=== PATIENT | male | born 1995 | race American Indian/Alaskan Native ===

== ENCOUNTER 2019-05-04 08:48 | Emergency (ER) | payer SELFPAY ==
[2019-05-04 08:53] VITALS: BP 177/105
[2019-05-04] MEDS ORDERED: ONDANSETRON 4 MG/2 ML INJ IV ONE (09:36)
--- NOTE | 2019-05-04 09:38 | Emergency Department Report ---
Vomiting/Diarrhea - [facility] Chief Complaint: Nausea/Vomiting/Diarrhea Stated Complaint: VOMITTING Time Seen by Provider: 05/04/19 09:35 Duration: 1 Day Severity: moderate Nausea/Vomiting Severity: Moderate Diarrhea Severity: None Pain Location: Other (none) Pain Severity: None Symptoms: No Watery Diarrhea, No Bloody diarrhea, No Fever, No Able to Tolerate Fluids, No Recent Unusual Foods, No Recent Untreated Water, No Recent use of Antibiotics, No Family w/ Similar Symptoms, No Contacts w/ Similar Symptoms, No Rash, No Hematuria, No Recent URI Symptoms Other History: vomiting all night. drank too much yesterday. no abd pain ED Review of Systems ROS: Stated complaint: VOMITTING Other details as noted in HPI Comment: All other systems reviewed and negative Gastrointestinal: as per HPI ED Past Medical Hx - Past Medical History Previous Medical History?: No - Surgical History Past Surgical History?: No - Social History Smoking Status: Current Every Day Smoker Substance Use Type: Marijuana - Medications Home Medications: Home Medications Medication Instructions Recorded Confirmed Last Taken Type Promethazine [Phenergan] 25 mg PO Q6HR PRN #12 tab 05/04/19 Unknown Rx Vomiting Diarrhea Exam - Exam General: Vital signs noted. No distress. Alert and acting appropriately. HEENT: Yes Moist Mucous Membranes, No Pharyngeal Erythema, No Pharyngeal Exudates, No Rhinorrhea, No Conjuctival Injection, No Frontal Tenderness, No Maxillary Tenderness Neck: No Adenopathy, No Rigidity Lungs: Yes Clear Lung Sounds, Yes Good Air Exchange, No Wheezes, No Stridor, No Cough, No Nasal Flaring, No Retractions, No Use of Accessory Muscles Heart exam: Regular: Yes, Murmur: No, Tachycardia: No Abdomen: Tenderness: No, Peritoneal Signs: No, Distention: No, Hyperactive Bowel sounds: No Skin exam: Rash: No, Edema: No, Normal turgor: Yes Neurologic: Alert and oriented, no deficits. Musculoskeletal: Unremarkable. ED Course Vital Signs 05/04/19 08:52 Temperature 97.3 F L Pulse Rate 90 Respiratory 18 Rate Blood Pressure 177/105 [Right] O2 Sat by Pulse 100 Oximetry ED Medical Decision Making - Lab Data Result diagrams: 05/04/19 10:03 05/04/19 10:03 - Medical Decision Making vomiting after drinking too much last night nontender abdomen c/w gastritis/hangover will hydrate, give zofran, reassess better with meds, ready to go monitor BP (hx HTN, asymptomatic) fu pcp, avoid etoh - Differential Diagnosis hangover, dehydration, gastritis Critical care attestation.: If time is entered above; I have spent that time in minutes in the direct care of this critically ill patient, excluding procedure time. ED Disposition Clinical Impression: Hangover without complication Disposition: TO HOME OR SELFCARE Is pt being admited?: No Condition: Good Instructions: Acute Nausea and Vomiting (ED) Prescriptions: Promethazine [Phenergan] 25 mg PO Q6HR PRN #12 tab PRN Reason: Nausea Referrals: PRIMARY CARE, [Primary Care Provider] - 3-5 Days CARLITO TRINIDAD MD [Referring] - 3-5 Days Time of Disposition: 11:15
[2019-05-04] MEDS ORDERED: D5W/0.9% NACL 1,000 ML IV SCH (10:00)
[2019-05-04 10:24] LABS: Basophils % (Auto) 0.5 % (0.0-1.8); Eosinophils % (Auto) 0.1 % (0.0-4.3); Hematocrit 41.7 % (35.5-45.6); Hemoglobin 13.7 gm/dl (11.8-15.2); Lymphocytes # (Auto) 0.4 K/mm3 (1.2-5.4); Lymphocytes % (Auto) 12.6 % (13.4-35.0); Mean Corpuscular HGB Conc 33 % (32-34); Mean Corpuscular Volume 81 fl (84-94); Monocytes # (Auto) 0.2 K/mm3 (0.0-0.8); Monocytes % (Auto) 6.8 % (0.0-7.3); Platelet Count 127 K/mm3 (140-440); Red Blood Count 5.14 M/mm3 (3.65-5.03); Red Cell Distribution Width 16.1 % (13.2-15.2)
[2019-05-04 10:59] LABS: Alanine Aminotransferase 16 units/L (7-56); Albumin 4.7 g/dL (3.9-5); BUN/Creatinine Ratio 13; Blood Urea Nitrogen 12 mg/dL (9-20); Hemolysis Index 8
== END 2019-05-04 12:05 | disposition home or self-care (01) ==
LOC: ED 08:48
DX: R11.10 Vomiting, unspecified (principal); F17.200 Nicotine dependence, unspecified, uncomplicated; F12.10 Cannabis abuse, uncomplicated; Z79.899 Other long term (current) drug therapy
CPT/HCPCS: 36415; 80053; 83690; 85025; 96361; 96374; 99283; J2405; J7042

== ENCOUNTER 2019-07-17 08:02 | Inpatient (IN) | payer SELFPAY ==
[2019-07-17] MEDS ORDERED: ONDANSETRON 4 MG/2 ML INJ IV ONE (08:51)
--- NOTE | 2019-07-17 08:52 | Emergency Department Report ---
ED Shortness of Breath HPI - General Chief Complaint: Dyspnea/Respdistress Stated Complaint: SOB Time Seen by Provider: 07/17/19 08:26 Source: patient, EMS Mode of arrival: Ambulatory Limitations: No Limitations - History of Present Illness Initial Comments: 23-year-old male with no past medical history presents to ED with shortness of breath x3-4 days. Patient lives with his uncle who tested positive for COVID- 19. Patient reports subjective fever, slight cough, and body aches. Patient denies sore throat, loss of sense of smell, or diarrhea. Patient reports nausea and vomiting since yesterday. MD Complaint: shortness of breath -: days(s) (4) Severity: mild Consistency: intermittent Improves With: rest Worsens With: exertion Associated Symptoms: fever, cough, nausea/vomiting Treatments Prior to Arrival: none - Related Data Home Oxygen Therapy: No Home Medications Medication Instructions Recorded Confirmed Last Taken No Known Home Medications [No 07/17/19 07/17/19 Unknown Reported Home Medications] Allergies Allergy/AdvReac Type Severity Reaction Status Date / Time No Known Allergies Allergy Unverified 05/04/19 08:53 ED Review of Systems ROS: Stated complaint: SOB Other details as noted in HPI Comment: All other systems reviewed and negative Constitutional: fever ENT: denies: throat pain Respiratory: cough, shortness of breath Gastrointestinal: nausea, vomiting. denies: diarrhea ED Past Medical Hx - Past Medical History Previous Medical History?: No - Surgical History Past Surgical History?: No - Social History Smoking Status: Current Every Day Smoker Substance Use Type: Alcohol - Medications Home Medications: Home Medications Medication Instructions Recorded Confirmed Last Taken Type No Known Home Medications [No 07/17/19 07/17/19 Unknown History Reported Home Medications] ED Physical Exam - General Limitations: No Limitations General appearance: alert, in no apparent distress - Head Head exam: Present: atraumatic, normocephalic - Eye Eye exam: Present: normal appearance - ENT ENT exam: Present: mucous membranes moist - Neck Neck exam: Present: normal inspection - Respiratory Respiratory exam: Present: normal lung sounds bilaterally. Absent: respiratory distress - Cardiovascular Cardiovascular Exam: Present: regular rate, normal rhythm - GI/Abdominal GI/Abdominal exam: Present: soft. Absent: distended, tenderness - Extremities Exam Extremities exam: Present: normal inspection - Neurological Exam Neurological exam: Present: alert, oriented X3 - Psychiatric Psychiatric exam: Present: normal affect, normal mood - Skin Skin exam: Present: warm, dry, intact, normal color ED Course Vital Signs 07/17/19 07/17/19 07/17/19 09:28 09:31 09:35 Temperature 98.4 F Pulse Rate 83 Respiratory 21 Rate Blood Pressure 157/100 [Left] O2 Sat by Pulse 100 98 96 Oximetry 07/17/19 07/17/19 09:45 10:00 Temperature Pulse Rate 85 Respiratory 14 Rate Blood Pressure 156/116 [Left] O2 Sat by Pulse 85 100 Oximetry - Reevaluation(s) Reevaluation #1: 07/17/19 09:40 RN ambulated pt for approx 1-2 min, pt had subsequent desaturation into the 80s% on room air. Pt also became tachypneic ED Medical Decision Making - Lab Data Result diagrams: 07/17/19 09:31 07/17/19 09:31 - Radiology Data Radiology results: report reviewed, image reviewed - Medical Decision Making 23-year-old male presents to ED with 3-day history of subjective fevers, shortness of breath, body aches, mild cough. Patient lives with his uncle who tested positive for COVID-19. Patient reports uncle was hospitalized at the [place]. states he has been in close contact with his uncle since he was discharged home. At rest, patient has normal vitals, however with minimal ambulation around the exam room patient's oxygen desaturates, as low as 85% on room air, patient also becomes tachypneic and dizzy. Patient was placed on 2 L O2. Chest x-ray is normal. He does have some lymphopenia present. COVID-19 testing was ordered, results pending. Patient will be admitted to the hospitalist due to his hypoxia for further management. - Differential Diagnosis COVID 19, pneumonia Critical care attestation.: If time is entered above; I have spent that time in minutes in the direct care of this critically ill patient, excluding procedure time. ED Disposition Clinical Impression: Suspected 2019 novel coronavirus infection, Hypoxia Disposition: OP ADMIT IP TO THIS HOSP Is pt being admited?: Yes Condition: Stable Referrals: JOSE RAMON SORTO MD [Primary Care Provider] - 3-5 Days Time of Disposition: 10:44
--- NOTE | 2019-07-17 09:19 | XRay Report ---
CHEST 1 VIEW INDICATION / CLINICAL INFORMATION: SOB, +COVID exposure. COMPARISON: None available. FINDINGS: SUPPORT DEVICES: None. HEART / MEDIASTINUM: No significant abnormality. LUNGS / PLEURA: No significant pulmonary or pleural abnormality. No pneumothorax. ADDITIONAL FINDINGS: Thoracolumbar scoliosis IMPRESSION: Thoracolumbar scoliosis. No acute pulmonary or pleural abnormality. Signer Name: Martin Hunter MD FACR Signed: 07/17/2019 9:15 AM Workstation Name: [id number]
[2019-07-17 10:13] LABS: Basophils % (Auto) 0.5 % (0.0-1.8); Eosinophils % (Auto) 0.3 % (0.0-4.3); Hematocrit 51.7 % (35.5-45.6); Hemoglobin 17.7 gm/dl (11.8-15.2); Lymphocytes # (Auto) 1.1 K/mm3 (1.2-5.4); Mean Corpuscular HGB Conc 34 % (32-34); Mean Corpuscular Volume 80 fl (84-94); Monocytes # (Auto) 0.6 K/mm3 (0.0-0.8); Monocytes % (Auto) 11.7 % (0.0-7.3); Platelet Count 146 K/mm3 (140-440); Red Blood Count 6.49 M/mm3 (3.65-5.03); Red Cell Distribution Width 15.6 % (13.2-15.2)
[2019-07-17 10:26] LABS: Alanine Aminotransferase 41 units/L (7-56); Albumin 5.5 g/dL (3.9-5); BUN/Creatinine Ratio 24; Blood Urea Nitrogen 36 mg/dL (9-20); Calcium 11.1 mg/dL (8.4-10.2); Hemolysis Index 12
[2019-07-17 10:27] LABS: C-Reactive Protein 0.2 mg/dL (0.00-1.30)
[2019-07-17 10:29] LABS: Bilirubin,Direct < 0.2 mg/dL (0-0.2)
--- NOTE | 2019-07-17 14:13 | History and Physical Report ---
History of Present Illness Date of examination: 07/17/19 Date of admission: 07/17/19 10:45 Chief complaint: SOB History of present illness: Patient is a 23 yo man with a history of tobacco dependency and diet controlled hypertension who presents to [facility] ED with SOB, subjective fevers and non- productive cough that started 3 days ago. He lives and had contact with his Uncle who has been admitted to the [place] hospital with COVID-19 infection. Associated with the SOB is nausea and 1 episode of nonbloody vomiting without abd pains/constipation. He does have loose stools. He has consented for COVID-19 testing/HIV testing. He does have fatigue. He denies cp, syncope or severe headache or neck stiffness. PMH: as hpi PSH: He denies SH: 1/3 ppd tob, occasional ETOH, +marijuana FH: hypetension, DM ROS: Constitutional: denies: fever +fatigue ENT: denies: throat or neck pain Respiratory: +cough, shortness of breath Cardiovascular: denies: chest pain Endocrine: denies unexplained weight loss or gain Gastrointestinal: denies: abdominal pain, +nausea Genitourinary: denies: dysuria Rectal: denies no incontinence, no bleeding, no itching, no discharge Musculoskeletal: denies swelling, myaglia, + generalized muscle weakness Skin: denies: rash Neurological: denies: headache Hematological/Lymphatic: denies: easy bleeding or easy bruising Allergic/Immunologic: no urticaria, no allergic rhinitis, no anaphylaxis Psych: denies sadness or hopelessness, SI/HI Medications and Allergies Allergies Allergy/AdvReac Type Severity Reaction Status Date / Time No Known Allergies Allergy Unverified 05/04/19 08:53 Home Medications Medication Instructions Recorded Confirmed Last Taken Type No Known Home Medications [No 07/17/19 07/17/19 Unknown History Reported Home Medications] Exam - Physical Exam Narrative exam: Gen: thin cachetic, NAD, Awake, Alert, Orientated x 3 HEENT: has a hair net on, NCAT, EOMI, PERRL, OP Clear Neck: supple, no adenopathy, no thyromegaly, no JVD CVS/Heart: RRR, normal S1S2, pulses present bilaterally Chest/Lungs: CTA B, Symmetrical chest expansion, good air entry bilaterally GI/Abdomen: soft, NTND, good bowel sounds, no guarding or rebound /Bladder: no suprapubic tenderness, no CVA or paraspinal tenderness Extermity/Skin: no c/c/e, no obvious rash MSK: FROM x 4 Neuro: CN 2-12 grossly intact, no new focal deficits Psych: calm - Constitutional Vitals: Temp Pulse Resp BP Pulse Ox 98.4 F 88 13 165/112 100 07/17/19 09:35 07/17/19 11:31 07/17/19 11:31 07/17/19 11:31 07/17/19 11:31 Results - Labs CBC & Chem 7: 07/17/19 09:31 07/17/19 09:31 Labs: Laboratory Last Values WBC 5.2 K/mm3 (4.5-11.0) 07/17/19 09:31 RBC 6.49 M/mm3 (3.65-5.03) H 07/17/19 09:31 Hgb 17.7 gm/dl (11.8-15.2) H 07/17/19 09:31 Hct 51.7 % (35.5-45.6) H 07/17/19 09:31 MCV 80 fl (84-94) L 07/17/19 09:31 MCH 27 pg (28-32) L 07/17/19 09:31 MCHC 34 % (32-34) 07/17/19 09:31 RDW 15.6 % (13.2-15.2) H 07/17/19 09:31 Plt Count 146 K/mm3 (140-440) 07/17/19 09:31 Lymph % (Auto) 21.0 % (13.4-35.0) 07/17/19 09:31 [place] % (Auto) 11.7 % (0.0-7.3) H 07/17/19 09:31 Eos % (Auto) 0.3 % (0.0-4.3) 07/17/19 09:31 Baso % (Auto) 0.5 % (0.0-1.8) 07/17/19 09:31 Lymph # 1.1 K/mm3 (1.2-5.4) L 07/17/19 09:31 [place] # 0.6 K/mm3 (0.0-0.8) 07/17/19 09:31 Eos # 0.0 K/mm3 (0.0-0.4) 07/17/19 09:31 Baso # 0.0 K/mm3 (0.0-0.1) 07/17/19 09:31 Seg Neutrophils % 66.5 % (40.0-70.0) 07/17/19 09:31 Seg Neutrophils # 3.5 K/mm3 (1.8-7.7) 07/17/19 09:31 D-Dimer 176.09 ng/mlDDU (0-234) 07/17/19 09:31 Sodium 136 mmol/L (137-145) L 07/17/19 09:31 Potassium 4.6 mmol/L (3.6-5.0) 07/17/19 09:31 Chloride 97.1 mmol/L (98-107) L 07/17/19 09:31 Carbon Dioxide 20 mmol/L (22-30) L 07/17/19 09:31 Anion Gap 24 mmol/L 07/17/19 09:31 BUN 36 mg/dL (9-20) H 07/17/19 09:31 Creatinine 1.5 mg/dL (0.8-1.5) 07/17/19 09:31 Estimated GFR > 60 ml/min 07/17/19 09:31 BUN/Creatinine Ratio 24 % 07/17/19 09:31 Glucose 86 mg/dL (75-100) 07/17/19 09:31 Glucose 87 mg/dL (75-100) 07/17/19 09:31 Calcium 11.1 mg/dL (8.4-10.2) H 07/17/19 09:31 Ferritin 161.3 ng/mL (13.0-400.0) 07/17/19 09:31 Total Bilirubin 0.70 mg/dL (0.1-1.2) 07/17/19 09:31 Direct Bilirubin < 0.2 mg/dL (0-0.2) 07/17/19 09:31 Indirect Bilirubin 0.5 mg/dL 07/17/19 09:31 AST 49 units/L (5-40) H 07/17/19 09:31 ALT 41 units/L (7-56) 07/17/19 09:31 Alkaline Phosphatase 68 units/L (35-129) 04/24/20 09:31 Lactate Dehydrogenase 234 units/L (91-180) H 07/17/19 09:31 C-Reactive Protein 0.20 mg/dL (0.00-1.30) 07/17/19 09:31 Total Protein 10.5 g/dL (6.3-8.2) H 07/17/19 09:31 Albumin 5.5 g/dL (3.9-5) H 07/17/19 09:31 Albumin/Globulin Ratio 1.1 % 07/17/19 09:31 Procalcitonin < 0.05 ng/mL (<0.15) 07/17/19 09:31 Influenza A (Rapid) Negative (Negative) 07/17/19 09:25 Influenza B (Rapid) Negative (Negative) 07/17/19 09:25 [place]/IV: Voiding Method Toilet IV Catheter Type [Left Forearm INT / Saline Lock ] Assessment and Plan Assessment and plan: Patient is a 23 yo man with a history of tobacco dependency and diet controlled hypertension who presents to [facility] ED with SOB, subjective fevers and non- productive cough that started 3 days ago. He lives and had contact with his [facility] le who has been admitted to the [place] hospital with COVID-19 infection. Associated with the SOB is nausea and 1 episode of nonbloody vomiting without abd pains/constipation. He does have loose stools. He has consented for COVID-19 testing/HIV testing. 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
[2019-07-17] MEDS ORDERED: HYDROcodone/ACETAMINOPHEN 5-325 MG TAB PO PRN (14:19)
[2019-07-17] MEDS ORDERED: hydrALAZINE 20 MG/1 ML INJ IV PRN (14:19)
[2019-07-17] MEDS ORDERED: ACETAMINOPHEN 325 MG TAB PO PRN (14:19)
[2019-07-17] MEDS ORDERED: ONDANSETRON 4 MG/2 ML INJ IV PRN (14:19)
[2019-07-17] MEDS ORDERED: SODIUM CHLORIDE 0.45% 1000 ML 1,000 ML IV SCH (15:00)
--- NOTE | 2019-07-17 15:06 | Consultation ---
History of Present Illness - Reason for Consult Consult date: 07/17/19 COVID PUI Requesting physician: JAZMIN CATALAN - History of Present Illness The patient is a with no significant past medical history came into the hospital with complaints of shortness of breath. He also started a cough 3 days ago. He lives with his uncle who apparently tested positive for COVID-19. Infectious diseases was consulted for additional evaluation. He felt hot but denies any specific fevers. No fever here. Not requiring any oxygen. He admits to bisexual behavior. Consented for HIV test. He was also noted to be significantly hypertensive Review of Systems: General: no fevers,chills or rigors HEENT: no new visual disturbance Respiratory: + For cough, shortness of breath Cardiovascular: No chest pain, syncope Gastrointestinal: No nausea, vomiting or diarrhea Genitourinary: No dysuria or hematuria Musculoskeletal: No new or worsening neck pain or back pain Neurologic: No headaches, seizures Hematologic: No easy bruising or bleeding Endocrine: No night sweats or acute weight loss Skin: negative for rash, jaundice Psychiatric: No suicidal or homicidal ideation Medications and Allergies Allergies Allergy/AdvReac Type Severity Reaction Status Date / Time No Known Allergies Allergy Unverified 05/04/19 08:53 Home Medications Medication Instructions Recorded Confirmed Last Taken Type No Known Home Medications [No 07/17/19 07/17/19 Unknown History Reported Home Medications] Active Meds: Active Medications Acetaminophen (Tylenol) 650 mg PO Q6H PRN PRN Reason: Non Cardiac Pain or Temp>100.5 Acetaminophen/Hydrocodone Bitart ([place] 5/325) 1 each PO Q4H PRN PRN Reason: Pain, Moderate (4-6) Amlodipine Besylate (Amlodipine) 10 mg PO QDAY JIM Enoxaparin Sodium (Enoxaparin) 40 mg SUB-Q QDAY@2200 JIM Hydralazine HCl (Apresoline) 10 mg IV Q4HR PRN PRN Reason: HTN SBP>=180 DBP>=110 Sodium Chloride (Nacl 0.45% 1000 Ml) 1,000 mls @ 100 mls/hr IV DIRECT JIM Labetalol HCl (Labetalol) 10 mg IV Q4H PRN PRN Reason: HTN SBP>=180 Nicotine (Habitrol) 21 mg TD QDAY JIM Ondansetron HCl (Zofran) 4 mg IV Q4H PRN PRN Reason: Nausea And Vomiting Pantoprazole Sodium (Protonix) 40 mg PO QDAY JIM Physical Examination - Physical Exam Narrative exam: Physical Exam: Constitutional: Alert, cooperative. No acute distress Head, Ears, Nose: Normocephalic, atraumatic. External ears, nose normal Eyes: Conjunctivae/corneas clear. No icterus. No ptosis. Neck: Supple, no meningeal signs Oral: dentition fair, no thrush Cardiovascular: S1, S2 normal. Respiratory: Good air entry, clear to auscultation bilaterally GI: Soft, non-tender; bowel sounds normal. No peritoneal signs Musculoskeletal: No pedal edema, no cyanosis. Skin: No rash or abscess Hem/Lymphatic: No palpable cervical or supraclavicular nodes. No lymphangitis Psych: Mood ok. Affect normal Neurological: Awake, alert, oriented. No gross abnormality - Constitutional Vitals: Vital Signs Temp Pulse Resp BP Pulse Ox 98.4 F 88 13 165/112 100 07/17/19 09:35 07/17/19 11:31 07/17/19 11:31 07/17/19 11:31 07/17/19 11:31 Temperature -Last 24 Hours Temperature 98.4 F Results - Labs CBC & Chem 7: 07/17/19 09:31 07/17/19 09:31 Labs: Abnormal lab results 07/17/19 07/17/19 07/17/19 Range/Units 09:31 09:31 09:31 RBC 6.49 H (3.65-5.03) M/mm3 Hgb 17.7 H (11.8-15.2) gm/dl Hct 51.7 H (35.5-45.6) % MCV 80 L (84-94) fl MCH 27 L (28-32) pg RDW 15.6 H (13.2-15.2) % [place] % (Auto) 11.7 H (0.0-7.3) % Lymph # 1.1 L (1.2-5.4) K/mm3 Sodium 136 L (137-145) mmol/L Chloride 97.1 L (98-107) mmol/L Carbon Dioxide 20 L (22-30) mmol/L BUN 36 H (9-20) mg/dL Calcium 11.1 H (8.4-10.2) mg/dL AST 49 H (5-40) units/L Lactate Dehydrogenase 234 H (91-180) units/L Total Protein 10.5 H (6.3-8.2) g/dL Albumin 5.5 H (3.9-5) g/dL - Imaging and Cardiology Chest x-ray: report reviewed, image reviewed (no infiltrate seen) Assessment and Plan A/P: 23/M with: #Cough and shortness of breath #Accelerated hypertension #Mild AGNIESZKA Recs: COVID-19 PCR is negative. CXR without infiltrates. Patient remains on room air with no fevers, no leukocytosis. Procalcitonin is normal. Inflammatory markers also not elevated. Agree with checking for HIV due to high risk sexual behavior, this could be done as an outpatient. No antibiotics needed. Okay for discharge from ID standpoint Hypertension work-up and treatment per primary ID will sign off. Please call with questions. Saida Cid MD, FACP [facility] ([facility]) C: [phone] O: [phone] F: [phone]
[2019-07-17 16:17] LABS: Hepatitis B Surface Antigen Non-Reactive (Negative); Hepatitis C Virus Antibody Non-Reactive (NonReactive)
[2019-07-17] MEDS: NICOTINE 21 MG/24 HR PATCH TD SCH (16:21)
[2019-07-17] MEDS: amLODIPine 10 MG TAB PO SCH (16:22)
[2019-07-17] MEDS ORDERED: ENOXAPARIN 40 MG/0.4 ML INJ SUB-Q SCH (22:00)
[2019-07-18 04:28] LABS: Hematocrit 50.9 % (35.5-45.6); Hemoglobin 17.3 gm/dl (11.8-15.2); Mean Corpuscular HGB Conc 34 % (32-34); Mean Corpuscular Volume 80 fl (84-94); Platelet Count 138 K/mm3 (140-440); Red Cell Distribution Width 15.3 % (13.2-15.2)
[2019-07-18 04:53] LABS: Alanine Aminotransferase 29 units/L (7-56); Albumin 5.1 g/dL (3.9-5); BUN/Creatinine Ratio 30; Blood Urea Nitrogen 27 mg/dL (9-20); Calcium 9.7 mg/dL (8.4-10.2); Hemolysis Index 9
[2019-07-18] MEDS: amLODIPine 10 MG TAB PO SCH (09:24)
[2019-07-18] MEDS: NICOTINE 21 MG/24 HR PATCH TD SCH (09:24)
[2019-07-18] MEDS ORDERED: PANTOPRAZOLE 40 MG TAB PO SCH (10:00)
--- NOTE | 2019-07-18 11:48 | Discharge Summary ---
Providers - Providers Date of Admission: 07/17/19 10:45 Date of discharge: 07/18/19 Attending physician: JAZMIN CATALAN 07/17/19 10:55 Consult to Physician [CONS] Stat Comment: Consulting Provider: ADDY DONALDSON Physician Instructions: Reason For Exam: possible COVID [facility] Condition: Stable Hospital course: Patient is a 23 yo man with a history of tobacco dependency and diet controlled hypertension who [facility] with SOB, subjective fevers and non-productive cough that started 3 days ago. He lives and had contact with his Uncle who has been admitted to the [place] hospital with COVID-19 infection. Associated with the SOB is nausea and 1 episode of nonbloody vomiting without abd pains/constipation. He does have loose stools. He has consented for COVID-19 testing/HIV/hepatitis testing which were negative. He had to be admitted because bp was so high requiring multiple doses of IV hydralazine and initiation of Norvasc. BP still not optimized, will add Lopressor and give him an outpatient appointment with our PCP affiliate. Renal failure has resolved with IVFs, Cr now 0.9. 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 DVT ppx sq lovenox Disposition: DC-01 TO HOME OR SELFCARE Time spent for discharge: 37 minutes Core Measure Documentation - Palliative Care Palliative Care/ Comfort Measures: Not Applicable - Core Measures Any of the following diagnoses?: none - VTE Discharge Requirements Deep Vein Thrombosis/Pulmonary Embolism Present on Admission: No Has pt received <5 days of overlap therapy or INR<2.0: No Anticoagulant overlap therapy prescribed at discharge: No Contraindication No Overlap Therapy order at DC: Not Indicated Exam - Physical Exam Narrative exam: Gen: thin cachetic, NAD, Awake, Alert, Orientated x 3 HEENT: has a hair net on, NCAT, EOMI, PERRL, OP Clear Neck: supple, no adenopathy, no thyromegaly, no JVD CVS/Heart: RRR, normal S1S2, pulses present bilaterally Chest/Lungs: CTA B, Symmetrical chest expansion, good air entry bilaterally GI/Abdomen: soft, NTND, good bowel sounds, no guarding or rebound /Bladder: no suprapubic tenderness, no CVA or paraspinal tenderness Extermity/Skin: no c/c/e, no obvious rash MSK: FROM x 4 Neuro: CN 2-12 grossly intact, no new focal deficits Psych: calm - Constitutional Vitals: Temp Pulse Resp BP Pulse Ox 97.7 F 91 H 18 160/113 100 07/18/19 08:39 07/18/19 08:39 07/18/19 08:39 07/18/19 08:39 07/18/19 08:39 Plan Activity: other (no strenous activity unless cleared by PCP) Diet: low salt Special Instructions: record daily BP diary (keep a log book with day time and blood pressure with heart rate reading) Additional Instructions: See Dr. Hines for high hemoglobin and protein in the blood, in the meantime take a baby aspirin with prilosec and drink plenty of water. Take blood pressure log book to PCP Follow up with: POLLY CHAIREZ MD [Staff Physician] - 7 Days BG HINES MD [Staff Physician] - 14 Days Prescriptions: Acetaminophen [Acetaminophen TAB] 2 tab PO Q6H PRN #12 tablet PRN Reason: Non Cardiac Pain Or Temp>100.5 Aspirin [Adult Aspirin] 81 mg PO DAILY #30 tablet. amLODIPine 10 mg PO QDAY #30 tablet Nicotine [Habitrol] 21 mg TD QDAY #14 patch Metoprolol [Lopressor TAB] 50 mg PO BID #60 tablet Omeprazole Magnesium [PriLOSEC Otc] 20 mg PO QDAY #30 tablet.
[2019-07-18] MEDS ORDERED: METOPROLOL TARTRATE 50 MG TAB PO SCH (12:00)
[2019-07-18 13:41] VITALS: BP 153/97
== END 2019-07-18 14:10 | disposition home or self-care (01) | DRG 683 ==
LOC: ED 08:02 → 3A 10:45 → 2B-ACE 17:45
PROVIDERS: ADMIT Internal Medicine; ATTEND Internal Medicine
DX: N17.0 Acute kidney failure with tubular necrosis (principal); E87.1 Hypo-osmolality and hyponatremia; E44.0 Moderate protein-calorie malnutrition; Z68.1 Body mass index [BMI] 19.9 or less, adult; E87.2 Acidosis; Z20.828 Contact with and (suspected) exposure to other viral communicable diseases; R09.02 Hypoxemia; I10 Essential (primary) hypertension; E86.0 Dehydration; D75.1 Secondary polycythemia; F17.200 Nicotine dependence, unspecified, uncomplicated; Z71.6 Tobacco abuse counseling; Z82.49 Family history of ischemic heart disease and other diseases of the circulatory system; Z83.3 Family history of diabetes mellitus; Z72.89 Other problems related to lifestyle
CPT/HCPCS: 36415; 71045; 80048; 80053; 80074; 80076; 82728; 82947; 83615; 84145; 84443; 85025; 85027; 85379; 86140; 86689; 87400; 99406; G0378; J0360; J1650; J2405; J7030; U0003

== ENCOUNTER 2021-06-04 06:59 | Emergency (ER) | payer SELFPAY ==
[2021-06-04] MEDS ORDERED: METOCLOPRAMIDE 10 MG/2 ML INJ IV ONE (07:36)
[2021-06-04] MEDS ORDERED: SODIUM CHLORIDE 0.9% 1000 ML 1,000 ML IV ONE (07:36)
[2021-06-04] MEDS ORDERED: FAMOTIDINE 20 MG/2 ML INJ IV ONE (07:36)
[2021-06-04] MEDS ORDERED: DICYCLOMINE 20 MG TAB PO ONE (07:36)
[2021-06-04] MEDS ORDERED: diphenhydrAMINE 50 MG/ML VIAL IV ONE (07:36)
[2021-06-04 08:15] LABS: Basophils % (Auto) 0.4 % (0.0-1.8); Eosinophils % (Auto) 0.1 % (0.0-4.3); Hemoglobin 13.3 gm/dl (11.8-15.2); Lymphocytes # (Auto) 0.9 K/mm3 (1.2-5.4); Mean Corpuscular HGB Conc 33 % (32-34); Mean Corpuscular Volume 82 fl (84-94); Monocytes # (Auto) 0.6 K/mm3 (0.0-0.8); Monocytes % (Auto) 12.7 % (0.0-7.3); Platelet Count 115 K/mm3 (140-440); Red Blood Count 5.01 M/mm3 (3.65-5.03); Red Cell Distribution Width 14.5 % (13.2-15.2)
[2021-06-04 08:18] LABS: Bilirubin,Urine NEG (Negative); Blood,Urine NEG (Negative); Color,Urine Amber (Yellow); RBC,Urine < 1.0 /HPF (0.0-6.0); WBC,Urine < 1.0 /HPF (0.0-6.0)
--- NOTE | 2021-06-04 08:35 | Emergency Department Report ---
ED Abdominal Pain HPI - General Chief Complaint: Abdominal Pain Stated Complaint: NAUSEA Time Seen by Provider: 06/04/21 07:02 Source: EMS Mode of arrival: Ambulatory Limitations: No Limitations - History of Present Illness Initial Comments: This is a 25-year-old male nontoxic, well nourished in appearance, no acute signs of distress presents to the ED with c/o of nausea and vomiting and abdominal pain 3 days. Patient describes vomiting as food content and yellow gastric acid. Patient describes abdominal pain as cramping and aching with level of 8/10 diffuse. Patient denies chest pain, short of breath, fever, hemoptysis, blood in stool, chills, headache, stiff neck, numbness or tingling. Patient stated has some diarrhea. Denies any blood in stool. Patient denies any recent travels. Patient denies any drug allergies or significant past medical history. Denies any alcohol consumption. MD Complaint: abdominal pain -: days(s) Location: diffuse Radiation: none Migration to: no migration Severity: mild Severity scale (0 -10): 8 Quality: cramping, aching Consistency: constant Improves With: nothing Worsens With: nothing Associated Symptoms: nausea, vomiting, diarrhea. denies: fever, chills, constipation, dysuria, hematemesis, hematochezia, melena, hematuria, anorexia, syncope - Related Data Previous Rx's Medication Instructions Recorded Last Taken Type Acetaminophen [Acetaminophen TAB] 2 tab PO Q6H PRN #12 tablet 07/18/19 Unknown Rx Aspirin [Adult Aspirin] 81 mg PO DAILY #30 tablet. 07/18/19 Unknown Rx Metoprolol [Lopressor TAB] 50 mg PO BID #60 tablet 07/18/19 Unknown Rx Nicotine [Habitrol] 21 mg TD QDAY #14 patch 07/18/19 Unknown Rx Omeprazole Magnesium [PriLOSEC Otc] 20 mg PO QDAY #30 tablet. 07/18/19 Unknown Rx amLODIPine 10 mg PO QDAY #30 tablet 07/18/19 Unknown Rx Amoxicillin/K Clav Tab [Augmentin 1 tab PO Q12HR #14 tab 06/04/21 Unknown Rx 875 mg] metroNIDAZOLE [Flagyl] 500 mg PO Q8HR #21 tablet 06/04/21 Unknown Rx Allergies Allergy/AdvReac Type Severity Reaction Status Date / Time No Known Allergies Allergy Verified 06/04/21 07:01 ED Review of Systems ROS: Stated complaint: NAUSEA Other details as noted in HPI Comment: All other systems reviewed and negative Constitutional: denies: chills, fever Eyes: denies: eye pain, eye discharge, vision change ENT: denies: ear pain, throat pain Respiratory: denies: cough, shortness of breath, wheezing Cardiovascular: denies: chest pain, palpitations Endocrine: no symptoms reported Gastrointestinal: abdominal pain, nausea, vomiting. denies: diarrhea, constipation, hematemesis, melena, hematochezia Genitourinary: denies: urgency, dysuria Musculoskeletal: denies: back pain, joint swelling, arthralgia Skin: denies: rash, lesions Neurological: denies: headache, weakness, paresthesias Psychiatric: denies: anxiety, depression Hematological/Lymphatic: denies: easy bleeding, easy bruising ED Past Medical Hx - Social History Smoking Status: Current Every Day Smoker Substance Use Type: Alcohol - Medications Home Medications: Home Medications Medication Instructions Recorded Confirmed Last Taken Type Acetaminophen [Acetaminophen TAB] 2 tab PO Q6H PRN #12 tablet 07/18/19 Unknown Rx Aspirin [Adult Aspirin] 81 mg PO DAILY #30 tablet. 07/18/19 Unknown Rx Metoprolol [Lopressor TAB] 50 mg PO BID #60 tablet 07/18/19 Unknown Rx Nicotine [Habitrol] 21 mg TD QDAY #14 patch 07/18/19 Unknown Rx Omeprazole Magnesium [PriLOSEC Otc] 20 mg PO QDAY #30 tablet. 07/18/19 Unknown Rx amLODIPine 10 mg PO QDAY #30 tablet 07/18/19 Unknown Rx Amoxicillin/K Clav Tab [Augmentin 1 tab PO Q12HR #14 tab 06/04/21 Unknown Rx 875 mg] metroNIDAZOLE [Flagyl] 500 mg PO Q8HR #21 tablet 06/04/21 Unknown Rx ED Physical Exam - General Limitations: No Limitations General appearance: alert, in no apparent distress - Head Head exam: Present: atraumatic, normocephalic - Eye Eye exam: Present: normal appearance - Neck Neck exam: Present: normal inspection, full ROM. Absent: tenderness, meningismus, lymphadenopathy - Respiratory Respiratory exam: Present: normal lung sounds bilaterally. Absent: respiratory distress, wheezes, rales, rhonchi, stridor, chest wall tenderness, accessory muscle use, decreased breath sounds, prolonged expiratory - Cardiovascular Cardiovascular Exam: Present: regular rate, normal rhythm, normal heart sounds. Absent: bradycardia, tachycardia, irregular rhythm, systolic murmur, diastolic murmur, rubs, gallop - GI/Abdominal GI/Abdominal exam: Present: soft, tenderness (diffuse), normal bowel sounds. Absent: distended, guarding, rebound, rigid - Extremities Exam Extremities exam: Present: normal inspection, full ROM, normal capillary refill. Absent: tenderness - Back Exam Back exam: Present: normal inspection, full ROM. Absent: tenderness, CVA tenderness (R), CVA tenderness (L), muscle spasm, paraspinal tenderness, vertebral tenderness, rash noted - Neurological Exam Neurological exam: Present: alert, oriented X3, normal gait - Psychiatric Psychiatric exam: Present: normal affect, normal mood - Skin Skin exam: Present: warm, dry, intact, normal color. Absent: rash ED Course Vital Signs 06/04/21 06:59 Temperature 98.1 F Pulse Rate 88 Respiratory 16 Rate Blood Pressure 156/113 [Left] O2 Sat by Pulse 98 Oximetry - Reevaluation(s) Reevaluation #1: 06/04/21 08:34 Patient is speaking in full sentences with no signs of distress noted. ED Medical Decision Making - Lab Data Result diagrams: 06/04/21 07:51 06/04/21 07:51 Lab Results 06/04/21 06/04/21 06/04/21 Range/Units 07:51 07:51 Unknown WBC 4.5 (4.5-11.0) K/mm3 RBC 5.01 (3.65-5.03) M/mm3 Hgb 13.3 (11.8-15.2) gm/dl Hct 41.0 (35.5-45.6) % MCV 82 L (84-94) fl MCH 27 L (28-32) pg MCHC 33 (32-34) % RDW 14.5 (13.2-15.2) % Plt Count 115 L (140-440) K/mm3 Lymph % (Auto) 20.0 (13.4-35.0) % Otero % (Auto) 12.7 H (0.0-7.3) % Eos % (Auto) 0.1 (0.0-4.3) % Baso % (Auto) 0.4 (0.0-1.8) % Lymph # (Auto) 0.9 L (1.2-5.4) K/mm3 Otero # (Auto) 0.6 (0.0-0.8) K/mm3 Eos # (Auto) 0.0 (0.0-0.4) K/mm3 Baso # (Auto) 0.0 (0.0-0.1) K/mm3 Seg Neutrophils % 66.8 (40.0-70.0) % Seg Neutrophils # 3.0 (1.8-7.7) K/mm3 Sodium 134 L (137-145) mmol/L Potassium 4.0 (3.6-5.0) mmol/L Chloride 101.2 (98-107) mmol/L Carbon Dioxide 20 L (22-30) mmol/L Anion Gap 17 mmol/L BUN 11 (9-20) mg/dL Creatinine 0.7 L (0.8-1.3) mg/dL Estimated GFR > 60 ml/min BUN/Creatinine Ratio 16 % Glucose 102 H (75-100) mg/dL Calcium 9.2 (8.4-10.2) mg/dL Total Bilirubin 0.40 (0.1-1.2) mg/dL AST 27 (5-40) units/L ALT 20 (7-56) units/L Alkaline Phosphatase 45 (35-129) units/L Total Protein 7.4 (6.3-8.2) g/dL Albumin 4.3 (3.9-5) g/dL Albumin/Globulin Ratio 1.4 % Lipase 13 (13-60) units/L Urine Color Kailey (Yellow) Urine Turbidity Clear (Clear) Urine pH 6.0 (5.0-7.0) Ur Specific Chauvin 1.030 (1.003-1.030) Urine Protein 30 mg/dl (Negative) mg/dL Urine Glucose (UA) Neg (Negative) mg/dL Urine Ketones 20 (Negative) mg/dL Urine Blood Neg (Negative) Urine Nitrite Neg (Negative) Urine Bilirubin Neg (Negative) Urine Urobilinogen 2.0 (<2.0) mg/dL Ur Leukocyte Esterase Neg (Negative) Urine WBC (Auto) < 1.0 (0.0-6.0) /HPF Urine RBC (Auto) < 1.0 (0.0-6.0) /HPF - Radiology Data [facility] [address] [place] [address] Cat Scan Report Signed Patient: MASOUD GROSS MR#: [id number] : 1995 Acct:[id number] Age/Sex: 25 / M ADM Date: 06/04/21 Loc: ED Attending Dr: Ordering Physician: CECILLE SKINNER NP Date of Service: 06/04/21 Procedure(s): CT abdomen pelvis w con Accession Number(s): [id number] cc: CECILLE SKINNER NP CT ABDOMEN AND PELVIS WITH CONTRAST HISTORY: abd pain with n/v/d. COMPARISON: None. TECHNIQUE: CT images of the abdomen and pelvis were obtained following administration of intravenous contrast. All CT scans at this location are performed using CT dose reduction for ALARA by means of automated exposure control. CONTRAST: 100 ml of intravenous contrast administered. FINDINGS: Lungs/bones: Lung bases are clear. There is scoliotic curvature the spine with no acute osseous abnormality identified. Abdomen/pelvis: The liver, gallbladder, spleen, pancreas, adrenals, kidneys, and proximal GI tract appear unremarkable. Urinary bladder is mostly collapsed but otherwise unremarkable. There is colonic wall thickening which appears to be diffuse with no bowel obstruction or perforation. IMPRESSION: 1. Pancolitis with no perforation or obstruction. Signer Name: Horace Cao MD Signed: 06/04/2021 9:28 AM Workstation Name: [id number] Transcribed By: Dictated By: Horace Cao MD Electronically Authenticated By: Horace Cao MD Signed Date/Time: 06/04/21927 DD/ 4 TD/TT: - Medical Decision Making This is a 25-year-old male that presents with abdominal pain. Patient is stable and was examined by me. Negative signs of symptoms of appendicitis. Labs obtained. UA obtained. CT of abdomen obtained and dictated by the radiologist. Patient is notified of the report with no questions noted by the patient. Vital signs are stable prior to discharge. Patient received medical treatment in the ED which patient stated symptoms has resovled and subsided. Was instructed note to operate any machinery due to possible drowsiness and stated someone will drive the patient home. Patient received Flagyl and Levaquin IV. I will discharge patient with Augmentin and Flagyl. A by mouth challenge has been obtained and patient tolerated well with no nausea vomiting. Patient was notified of strict precatuions of appendictis symptoms and to return to the ED if symptoms occurs as soon as possible. Patient was also instructed to Follow- up with a primary care and hot end operator doctor in 3-5 days or if symptoms worsen and continue return to emergency room as soon as possible. At time of discharge, the patient does not seem toxic or ill in appearance. No acute signs of distress noted. Patient agrees to discharge treatment plan of care. No further questions noted by the patient. Critical care attestation.: If time is entered above; I have spent that time in minutes in the direct care of this critically ill patient, excluding procedure time. ED Disposition Clinical Impression: Pancolitis Disposition: HOME / SELF CARE / HOMELESS Is pt being admited?: No Does the pt Need Aspirin: No Condition: Stable Additional Instructions: Follow-up with a primary care and hot end operator doctor in 3-5 days or if symptoms worsen and continue return to emergency room as soon as possible. Prescriptions: Amoxicillin/K Clav Tab [Augmentin 875 mg] 1 tab PO Q12HR #14 tab metroNIDAZOLE [Flagyl] 500 mg PO Q8HR #21 tablet Referrals: POLLY CHAIREZ MD [Primary Care Provider] - 3-5 Days [facility] [Provider Group] - 3-5 Days Time of Disposition: 10:27
[2021-06-04 08:38] LABS: Alanine Aminotransferase 20 units/L (7-56); Albumin 4.3 g/dL (3.9-5); Blood Urea Nitrogen 11 mg/dL (9-20); Calcium 9.2 mg/dL (8.4-10.2); Hemolysis Index 6
[2021-06-04 08:41] LABS: BUN/Creatinine Ratio 16
--- NOTE | 2021-06-04 09:33 | Cat Scan Report ---
CT ABDOMEN AND PELVIS WITH CONTRAST HISTORY: abd pain with n/v/d. COMPARISON: None. TECHNIQUE: CT images of the abdomen and pelvis were obtained following administration of intravenous contrast. All CT scans at this location are performed using CT dose reduction for ALARA by means of automated exposure control. CONTRAST: 100 ml of intravenous contrast administered. FINDINGS: Lungs/bones: Lung bases are clear. There is scoliotic curvature the spine with no acute osseous abno rmality identified. Abdomen/pelvis: The liver, gallbladder, spleen, pancreas, adrenals, kidneys, and proximal GI tract a ppear unremarkable. Urinary bladder is mostly collapsed but otherwise unremarkable. There is colonic wall thickening whic h appears to be diffuse with no bowel obstruction or perforation. IMPRESSION: 1. Pancolitis with no perforation or obstruction. Signer Name: Horace Cao MD Signed: 06/04/2021 9:28 AM Workstation Name: [id number]
[2021-06-04] MEDS ORDERED: metroNIDAZOLE/NS 500 MG/100 ML 500 MG/100 ML BAG IV ONE (09:51)
[2021-06-04 12:17] VITALS: BP 141/95
== END 2021-06-04 12:22 | disposition home or self-care (01) ==
LOC: ED 06:59
DX: K51.00 Ulcerative (chronic) pancolitis without complications (principal); F17.200 Nicotine dependence, unspecified, uncomplicated
CPT/HCPCS: 36415; 74177; 80053; 81001; 83690; 85025; 96361; 96365; 96368; 96375; 99284; J1200; J1956; J2765; J3490; J7030; J7517; Q9967; Q0162